=== PATIENT | female | born 1940 | race American Indian/Alaskan Native ===

== ENCOUNTER 2017-03-22 16:56 | Inpatient (IN) | payer OTHER ==
[2017-03-22 17:29] VITALS: BMI 27.6
[2017-03-22 19:05] LABS: BASO # 0.1 K/uL (0.0-0.2); BASO % 1.2 % (0.0-2.0); HEMOGLOBIN 9.5 g/dL (11.0-16.0); LYMPH # 0.8 K/uL (1.0-4.3); LYMPH % 19.3 % (20.0-40.0); MEAN CELL VOLUME 73.2 fL (81.0-99.0); MEAN CORPUSCULAR HEMOGLOBIN 23.8 pg (27.0-31.0); MEAN CORPUSCULAR HGB CONC 32.5 g/dL (33.0-37.0); MONO # 0.4 K/uL (0.0-0.8); MONO % 9.4 % (0.0-10.0); NEUT % 69.1 % (50.0-75.0); RBC 3.98 Mil/uL (3.80-5.20); RED CELL DISTRIBUTION WIDTH 18.7 % (11.5-14.5); WHITE BLOOD COUNT 4.3 K/uL (4.8-10.8)
[2017-03-22 19:11] LABS: SQUAMOUS EPITHIAL 15 /hpf (0-5); URINE BACTERIA FEW (<OCC); URINE BILIRUBIN NEGATIVE (NEGATIVE); URINE BLOOD NEGATIVE (NEGATIVE); URINE CLARITY Hazy (Clear); URINE GLUCOSE (UA) NORMAL (Normal); URINE LEUKOCYTE ESTERASE NEG Leu/uL (Negative); URINE NITRATE NEGATIVE (NEGATIVE); URINE PROTEIN 1+ mg/dL (NEGATIVE)
[2017-03-22 19:12] LABS: URINE COLOR YELLOW (YELLOW)
[2017-03-22 19:13] LABS: ALBUMIN 2.7 g/dL (3.5-5.0)
[2017-03-22 19:14] LABS: INR 1.6; PROTHROMBIN TIME 18.3 SECONDS (9.7-12.2)
[2017-03-22 19:16] LABS: ALB/GLOB RATIO 0.7 (1.0-2.1); AST/SGOT 25 U/L (14-36); BLOOD UREA NITROGEN 9 mg/dL (7-17); GFR AFRICAN-AMERICAN > 60; GFR NON-AFRICAN AMERICAN > 60
[2017-03-22 19:17] LABS: ALT/SGPT 27 U/L (9-52); CALCIUM 8.2 mg/dl (8.6-10.4); LIPASE 65 U/L (23-300)
[2017-03-22] MEDS ORDERED: Potassium Chloride 10 mEq ER Tab PO STA (19:41)
[2017-03-22] MEDS ORDERED: Potassium Chloride 20 mEq ER Tab PO ONE (19:47)
--- NOTE | 2017-03-22 20:07 | C.PDOC ---
History Of Present Illness Elif Ordoñez, a 77 year old female, is brought into the emergency department by her family because of a referral from Dr. Richardson for evaluation at [facility]. The patient brings discharge paperwork from 2 admissions from [facility] within the last month. She was diagnosed with hepatitis B with abdominal ascites and questionable gynecological pathology. Time Seen by Provider: 03/22/17 18:15 Chief Complaint (Nursing): Abdominal Pain History Per: Patient History/Exam Limitations: no limitations Past Medical History Reviewed: Historical Data, Nursing Documentation, Vital Signs Vital Signs: Last Vital Signs Temp 98.3 F 03/22/17 22:04 Pulse 92 H 03/22/17 22:53 Resp 20 03/22/17 22:04 BP 158/82 H 03/22/17 22:04 Pulse Ox 95 03/22/17 22:04 - Medical History PMH: HTN, Hypercholesterolemia, Rheumatoid Arthritis Family History: States: Unknown Family Hx - Social History Hx Alcohol Use: No Hx Substance Use: No - Immunization History Hx Tetanus Toxoid Vaccination: Yes Hx Influenza Vaccination: No Hx Pneumococcal Vaccination: No Review Of Systems Except As Marked, All Systems Reviewed And Found Negative. (Denies any medical problems.) Physical Exam - Physical Exam Appears: Well, Non-toxic, No Acute Distress Skin: Normal Color, Warm Head: Atraumatic, Normacephalic Eye(s): bilateral: Normal Inspection, PERRL, EOMI Ear(s): Left: Normal Nose: Normal Oral Mucosa: Moist Tongue: Normal Appearing Lips: Normal Appearing Teeth: Normal Dentition Gingiva: Normal Appearing Throat: Normal Neck: Normal Chest: No Deformity, No Tenderness Cardiovascular: Rhythm Regular Respiratory: Normal Breath Sounds, No Wheezing Gastrointestinal/Abdominal: Normal Exam, Bowel Sounds, Soft, Tenderness (no tenderness to abdomen), Ascites (Mild ascites) Back: Normal Inspection, No CVA Tenderness Extremity: Normal ROM, No Tenderness, No Pedal Edema, No Deformity, No Swelling Neurological/Psych: Oriented x3, Normal Speech, Normal Cognition ED Course And Treatment - Laboratory Results Result Diagrams: 03/22/17 18:59 03/22/17 18:59 Lab Interpretation: Abnormal (+ hypokalemia) ECG: Interpreted By Nm ECG Rhythm: Sinus Rhythm ECG Interpretation: Normal Rate From EC O2 Sat by Pulse Oximetry: 97 (RA) Pulse Ox Interpretation: Normal - Radiology CXR: Interpreted by Me CXR Interpretation: Yes: No Acute Disease - Other Rad abd x 2 X-Ray: Interpreted by Me (+ increased gas/stool no obst/FA) abd US X-Ray: Read By Radiologist (+ abd ascites) - CT Scan/US Abdominal US Other Rad Studies (CT/US): Read By Radiologist, Radiology Report Reviewed CT/US Interpretation: IMPRESSION: Moderate abdominal free fluid/ascites. Otherwise, no evidence of significant acute process. Gallbladder sludge. No findings to suggest acute cholecystitis. Liver findings suggestive of cirrhosis. Reevaluation Time: 20:10 Reassessment Condition: Improved - Physician Consult Information Outcome Of Conversation: d/w Dr. Chacne Richardson, PMD. UNAWARE of findings from prior evals @ [facility]. did NOT refer this pt to our hospital today. Asks pt to be adm to Hospitalists and f/u with her @ d/c. Prior eval and and consults from [facility]: Mojganda: heme Onc for Hep B. 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
--- NOTE | 2017-03-22 20:49 | US ---
EXAM: US Abdomen Complete CLINICAL HISTORY: 77 years old, female; Signs and symptoms; Other: Hepatitis b, cirrhosis TECHNIQUE: Real-time ultrasound of the abdomen (complete) with image documentation. EXAM DATE/TIME: 03/22/2017 6:33 PM COMPARISON: No relevant prior studies available. FINDINGS: Gallbladder: Contains hypoechoic material, most likely representing sludge. No evidence of significant associated flow/vascularity on color imaging. No large shadowing gallstones seen. Fluid seen adjacent to the gallbladder, felt to be related to the generalized abdominal free fluid. No significant gallbladder wall thickening noted. Common bile duct: Does not appear abnormally dilated, measuring less than 6 mm in diameter. Liver: Appear small in size, measuring 13 cm in length, and has a mildly nodular contour. Findings are likely related to the known diagnosis of cirrhosis. No focal lesions seen sonographically. Normal flow seen in the main portal vein on color and Doppler imaging. Pancreas: Obscured by gas. Right kidney: Within normal limits in appearance. Measures 10.6 cm in length. No evidence of hydronephrosis. Left kidney: Within normal limits in appearance. Measures 10 cm in length. No evidence of hydronephrosis. Spleen: Within normal limits in appearance. Measures 7.4 cm in length. Aorta: Incompletely seen due to gas. Imaged portions appear unremarkable. IVC: Imaged portions appear unremarkable. Free fluid: Moderate amount of abdominal free fluid is seen, abutting the liver, gallbladder, and spleen. IMPRESSION: Moderate abdominal free fluid/ascites. Otherwise, no evidence of significant acute process. Gallbladder sludge. No findings to suggest acute cholecystitis. Liver findings suggestive of cirrhosis. See above for remaining findings.
[2017-03-23 06:59] LABS: IRON 17 ug/dL (37-170)
[2017-03-23 07:02] LABS: ALB/GLOB RATIO 0.7 (1.0-2.1); ALBUMIN 2.5 g/dL (3.5-5.0); ALT/SGPT 21 U/L (9-52); AST/SGOT 30 U/L (14-36); BLOOD UREA NITROGEN 8 mg/dL (7-17); CALCIUM 7.9 mg/dl (8.6-10.4); GFR AFRICAN-AMERICAN > 60; GFR NON-AFRICAN AMERICAN > 60
[2017-03-23 07:10] LABS: % IRON SATURATION 10 (20-55); TOTAL IRON BINDING CAPACITY 178 ug/dL (250-450)
[2017-03-23 08:06] LABS: FOLATE 10.8 ng/mL
--- NOTE | 2017-03-23 08:25 | CP.PCM.HP ---
History of Present Illness - History of Present Illness History of Present Illness: Elif Ordoñez is a 77F w/ hx of Hep B, decompensated liver cirrhosis, RA who presented to the ED due to advise from PCP for abd pain. Pt states that she has been having abd pain for a few weeks to months. Since onset, her abd pain has been constant. She currently rates it a 8 out of 10. Location lower abd with no radiation. She desscribes it has "feel tight." Denies any aggravating factors. She notes that the pain improved after her paracentesis in February, but states that her abd pain came back over time along with her increase in abd girth. She denies any fever, chills or diaphoresis. Pt had discharge paperwork bedside from [facility] [place]. She was not quite sure of her current medical hx and course. Pt has had a diag of Hep B for 4 years and states thats she follows with Dr. Ramos. She denies previous tx of Hep B or any meds for her hepatitis. She was recently hospitalized in February at [facility] [place] x 2. In her first admission on February 27, pt had an abd paracentesis. According to the pt, they took 6 bodies of fluid. Pt states that she has also had complaints of NUT SIFTER pain and has an appt w / her NUT SIFTER as an oupt. As per pt, she was never started on any diuretics PMH: HTN, Hypercholesterolemia, Rheumatoid Arthritis, Hep B, decompensated liver cirrohsis Surgical hx: Denies Family History: Denies any hx of colon ca or other malignancies, but was unsure Social hx: Denies smoking, EtoH use and illicit drug use ROS: 12 point ROS was conducted, other than what was states above it was neg Endoscopy hx: Pt states that she had a colonoscopy and EGD as an oupt within 4 hrs and states that they were both neg Present on Admission - Present on Admission Any Indicators Present on Admission: Yes Review of Systems - Review of Systems Systems not reviewed;Unavailable: Acuity of Condition - Constitutional Constitutional: Fatigue, Lethargy, Weight Loss - Cardiovascular Cardiovascular: absent: As Per HPI, Acrocyanosis, Chest Pain, Chest Pain at Rest , Chest Pain with Activity, Claudication, Diaphoresis, Dyspnea, Dyspnea on Exertion, Edema, Irregular Heart Rhythm, Pain Radiating to Arm/Neck/Jaw, Leg Edema, Leg Ulcers, Lightheadedness, Orthopnea, Palpitations, Paroxysmal Nocturnal Dyspnea, Pedal Edema, Radiating Pain, Rapid Heart Rate, Slow Heart Rate, Syncope, Other - Respiratory Respiratory: absent: As Per HPI, Cough, Dyspnea, Hemoptysis, Dyspnea on Exertion , Wheezing, Snoring, Stridor, Pain on Inspiration, Chest Congestion, Excessive Mucous Production, Change in Mucous Color, Pain with Coughing, Other - Gastrointestinal Gastrointestinal: Abdominal Pain - Integumentary Integumentary: absent: As Per HPI, Acne, Alopecia, Bleeding Lesions, Change in Hair, Change in Nails, Change in Pigmentation, Changing Lesions, Dry Skin, Erythema, Furuncle, Hirsutism, Lesions, New Lesions, Non-Healing Lesions, Photosensitivity, Pruritus, Rash, Skin Pain, Skin Ulcer, Sores, Striae, Swelling , Unusual Bruising, Wounds, Jaundice, Other - Neurological Neurological: Dizziness - Psychiatric Psychiatric: absent: As Per HPI, Abnormal Sleep Pattern, Anhedonia, Anxiety, Auditory Hallucinations, Behavioral Changes, Change in Appetite, Change in Libido, Confusion, Depression, Difficulty Concentrating, Hallucinations, Homicidal Ideation, Hopelessness, Irritability, Memory Loss, Mood Swings, Panic Attacks, Paranoia, Suicidal Ideation, Visual Hallucinations, Tactile Hallucinations, Other Past Patient History - Past Medical History & Family History Past Medical History?: Yes - Past Social History Smoking Status: Former Smoker - CARDIAC Hx Hypercholesterolemia: Yes Hx Hypertension: Yes - HEMATOLOGICAL/ONCOLOGICAL Hx Blood Disorders: Yes Hx Hepatitis B: Yes Other/Comment: ascites - MUSCULOSKELETAL/RHEUMATOLOGICAL Hx Falls: No - GASTROINTESTINAL Hx Gastroesophageal Reflux: Yes - PSYCHIATRIC Hx Substance Use: No - SURGICAL HISTORY Other/Comment: Cancer Spot in 1960 Taken Out And Cleared. - ANESTHESIA Hx Anesthesia: Yes Hx Anesthesia Reactions: No Hx Malignant Hyperthermia: No Has any member of the family had a problem w/ anesthesia?: No Meds Allergies/Adverse Reactions: Allergies Allergy/AdvReac Type Severity Reaction Status Date / Time No Known Allergies Allergy Verified 03/22/17 17:15 Physical Exam - Constitutional Appears: No Acute Distress - Head Exam Head Exam: ATRAUMATIC, NORMAL INSPECTION, NORMOCEPHALIC - Eye Exam Eye Exam: EOMI, Normal appearance, PERRL Pupil Exam: NORMAL ACCOMODATION, PERRL - Respiratory Exam Respiratory Exam: Decreased Breath Sounds - Cardiovascular Exam Cardiovascular Exam: REGULAR RHYTHM - GI/Abdominal Exam GI & Abdominal Exam: Distended, Normal Bowel Sounds, Organomegaly, Soft. absent : Tenderness Results - Vital Signs Recent Vital Signs: Last Vital Signs Temp 98.4 F 03/23/17 07:25 Pulse 90 03/23/17 07:25 Resp 18 03/23/17 07:25 BP 146/79 03/23/17 07:25 Pulse Ox 97 03/23/17 07:25 - Labs Result Diagrams: 03/22/17 18:59 03/23/17 06:33 Labs: Laboratory Results - last 24 hr 03/23/17 03/23/17 06:33 06:33 Sodium 141 Potassium 3.6 Chloride 99 Carbon Dioxide 31 H Anion Gap 15 BUN 8 Creatinine 0.5 L Est GFR ( Amer) > 60 Est GFR (Non-Af Amer) > 60 Random Glucose 85 Calcium 7.9 L Iron 17 L TIBC 178 L % Saturation 10 L Total Bilirubin 0.4 AST 30 ALT 21 Alkaline Phosphatase 79 Total Protein 6.2 L Albumin 2.5 L Globulin 3.7 Albumin/Globulin Ratio 0.7 L Vitamin B12 819 Folate 10.8 TSH 3rd Generation 2.65 Assessment & Plan (1) Abdominal pain Status: Acute (2) Ascites Status: Acute (3) Hypokalemia Status: Acute
[2017-03-23 08:28] LABS: HEPATITIS A IGM NEGATIVE (NEGATIVE); HEPATITIS B CORE AB NEGATIVE (NEGATIVE)
[2017-03-23 08:40] LABS: HEPATITIS C ANTIBODY NEGATIVE (NEGATIVE)
[2017-03-23 08:46] LABS: HEPATITIS B SURFACE AG POSITIVE (NEGATIVE)
--- NOTE | 2017-03-23 09:21 | CP.PCM.CON ---
<Hilton Ramos - Last Filed: 03/23/17 09:34> History of Present Illness - History of Present Illness History of Present Illness: Elif Ordoñez is a 77F w/ hx of Hep B, decompensated liver cirrhosis, RA who presented to the ED due to advise from PCP for abd pain. Pt states that she has been having abd pain for a few weeks to months. Since onset, her abd pain has been constant. She currently rates it a 8 out of 10. Location lower abd with no radiation. She desscribes it has "feel tight." Denies any aggravating factors. She notes that the pain improved after her paracentesis in February, but states that her abd pain came back over time along with her increase in abd girth. She denies any fever, chills or diaphoresis. Pt had discharge paperwork bedside from [facility]. She was not quite sure of her current medical hx and course. Pt has had a diag of Hep B for 4 years and states thats she follows with Dr. Ramos. She denies previous tx of Hep B or any meds for her hepatitis. She was recently hospitalized in February at [facility] x 2. In her first admission on February 27, pt had an abd paracentesis. According to the pt, they took 6 bodies of fluid. 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 As per pt, she was never started on any diuretics PMH: HTN, Hypercholesterolemia, Rheumatoid Arthritis, Hep B, decompensated liver cirrohsis Surgical hx: Denies Family History: Denies any hx of colon ca or other malignancies, but was unsure Social hx: Denies smoking, EtoH use and illicit drug use ROS: 12 point ROS was conducted, other than what was states above it was neg Endoscopy hx: Pt states that she had a colonoscopy and EGD as an oupt within 4 hrs and states that they were both neg Past Patient History - Past Medical History & Family History Past Medical History?: Yes - Past Social History Smoking Status: Former Smoker - CARDIAC Hx Hypercholesterolemia: Yes Hx Hypertension: Yes - HEMATOLOGICAL/ONCOLOGICAL Hx Blood Disorders: Yes Hx Hepatitis B: Yes Other/Comment: ascites - MUSCULOSKELETAL/RHEUMATOLOGICAL Hx Falls: No - GASTROINTESTINAL Hx Gastroesophageal Reflux: Yes - PSYCHIATRIC Hx Substance Use: No - SURGICAL HISTORY Other/Comment: Cancer Spot in 1959 Taken Out And Cleared. - ANESTHESIA Hx Anesthesia: Yes Hx Anesthesia Reactions: No Hx Malignant Hyperthermia: No Has any member of the family had a problem w/ anesthesia?: No Meds Allergies/Adverse Reactions: Allergies Allergy/AdvReac Type Severity Reaction Status Date / Time No Known Allergies Allergy Verified 03/22/17 17:15 - Medications Medications: Current Medications Aspirin (Aspirin Chewable) 81 mg PO DAILY [facility] Enoxaparin Sodium (Lovenox) 40 mg SC DAILY [facility] Metoprolol Tartrate (Lopressor) 25 mg PO BID [facility] Last Admin: 03/23/17 00:10 Dose: 25 mg Pneumococcal Polyvalent Vaccine (Pneumovax 23 Vaccine) 0.5 ml IM .ONCE ONE Stop: 03/25/17 11:01 Rosuvastatin Calcium (Crestor) 5 mg PO HS [facility] Physical Exam - Constitutional Appears: Well, Non-toxic, No Acute Distress - Eye Exam Eye Exam: Normal appearance - ENT Exam ENT Exam: Mucous Membranes Moist, Normal Exam - Respiratory Exam Respiratory Exam: Clear to Auscultation Bilateral, NORMAL BREATHING PATTERN. absent: Prolonged Expiratory Phase, Rales, Rhonchi, Wheezes - Cardiovascular Exam Cardiovascular Exam: REGULAR RHYTHM, +S1, +S2 - GI/Abdominal Exam GI & Abdominal Exam: Distended, Normal Bowel Sounds, Organomegaly. absent: Guarding, Rebound, Rigid Additional comments: distended abd with + fluid wave - Extremities Exam Extremities exam: Positive for: normal inspection - Neurological Exam Neurological exam: Alert, Oriented x3 - Psychiatric Exam Psychiatric exam: Flat Affect, Normal Mood - Skin Skin Exam: Dry, Intact, Normal Color, Warm Results - Vital Signs Recent Vital Signs: Last Vital Signs Temp 98.4 F 03/23/17 07:25 Pulse 90 03/23/17 07:25 Resp 18 03/23/17 07:25 BP 146/79 03/23/17 07:25 Pulse Ox 97 03/23/17 07:25 - Labs Result Diagrams: 03/22/17 18:59 03/23/17 06:33 Labs: Laboratory Results - last 24 hr 03/23/17 03/23/17 03/23/17 06:33 06:33 07:55 Sodium 141 Potassium 3.6 Chloride 99 Carbon Dioxide 31 H Anion Gap 15 BUN 8 Creatinine 0.5 L Est GFR ( Amer) > 60 Est GFR (Non-Af Amer) > 60 Random Glucose 85 Calcium 7.9 L Iron 17 L TIBC 178 L % Saturation 10 L Total Bilirubin 0.4 AST 30 ALT 21 Alkaline Phosphatase 79 Total Protein 6.2 L Albumin 2.5 L Globulin 3.7 Albumin/Globulin Ratio 0.7 L Vitamin B12 819 Folate 10.8 TSH 3rd Generation 2.65 Hepatitis A IgM Ab Negative Hep Bs Antigen Positive H Hep Bs Antibody Hep B Core IgM Ab Negative Hepatitis C Antibody Negative 03/23/17 07:55 Sodium Potassium Chloride Carbon Dioxide Anion Gap BUN Creatinine Est GFR ( Amer) Est GFR (Non-Af Amer) Random Glucose Calcium Iron TIBC % Saturation Total Bilirubin AST ALT Alkaline Phosphatase Total Protein Albumin Globulin Albumin/Globulin Ratio Vitamin B12 Folate TSH 3rd Generation Hepatitis A IgM Ab Hep Bs Antigen Hep Bs Antibody Negative Hep B Core IgM Ab Hepatitis C Antibody Assessment & Plan - Assessment and Plan (Free Text) Assessment: Elif Ordoñez is 77F w/ hx of hep b, decompensated liver cirrohsis who presented to the Ed with complaints of abd pain. Her abd pain is likely 2/2 worsening ascites. DDx: SBP vs BILLBOARD POSTER HELPER pain Abd pain likely 2/2 tense ascites Ascites likely 2/2 decompensated liver cirrhosis Decompensated liver cirrhosis likely 2/2 Hep B BILLBOARD POSTER HELPER Pain Plan: Diagnostic and therapeutic abd paracentesis Send abd fluid for cell count, smear, albumin, total protein Will send for Hep panel and other hep b serologies will hold on lasix for now, until after paracentesis Depending on total amount of fluid extracted with give albumin if indicated will hold on abx for now, as pt is not febrile and does not clinically present with SBP will try to obtain records from pt's primary GI Pain management as per primary team MELD: 12 Ultrasound report notes, no biliary pathology, liver shows cirrohsis characteristics; AFP WNL noted from [facility] paper work D/W Dr. Segal <Willis Segal - Last Filed: 03/23/17 14:21> Meds - Medications Medications: Current Medications Aspirin (Aspirin Chewable) 81 mg PO DAILY [facility] Last Admin: 03/23/17 10:00 Dose: Not Given Enoxaparin Sodium (Lovenox) 40 mg SC DAILY [facility] Last Admin: 03/23/17 10:00 Dose: Not Given Metoprolol Tartrate (Lopressor) 25 mg PO BID [facility] Last Admin: 03/23/17 09:12 Dose: 25 mg Pneumococcal Polyvalent Vaccine (Pneumovax 23 Vaccine) 0.5 ml IM .ONCE ONE Stop: 03/25/17 11:01 Rosuvastatin Calcium (Crestor) 5 mg PO HS [facility] Results - Vital Signs Recent Vital Signs: Last Vital Signs Temp 98.4 F 03/23/17 07:25 Pulse 86 03/23/17 12:19 Resp 18 03/23/17 07:25 BP 157/68 H 03/23/17 09:12 Pulse Ox 97 03/23/17 07:25 - Labs Result Diagrams: 03/22/17 18:59 03/23/17 06:33 Labs: Laboratory Results - last 24 hr 03/23/17 03/23/17 03/23/17 06:33 06:33 07:55 Sodium 141 Potassium 3.6 Chloride 99 Carbon Dioxide 31 H Anion Gap 15 BUN 8 Creatinine 0.5 L Est GFR ( Amer) > 60 Est GFR (Non-Af Amer) > 60 Random Glucose 85 Calcium 7.9 L Iron 17 L TIBC 178 L % Saturation 10 L Total Bilirubin 0.4 AST 30 ALT 21 Alkaline Phosphatase 79 Total Protein 6.2 L Albumin 2.5 L Globulin 3.7 Albumin/Globulin Ratio 0.7 L Vitamin B12 819 Folate 10.8 TSH 3rd Generation 2.65 Fluid Source Fluid Appearance Fluid WBC Fluid RBC Fluid Tot Cell Count Fluid Neutrophils Fluid Lymphocytes Fld Monocyte/Macrophag Fluid Comment Hepatitis A IgM Ab Negative Hep Bs Antigen Positive H Hep Bs Ag Neutralizatn Hep Bs Antibody Hep B Core IgM Ab Negative Hepatitis C Antibody Negative 03/23/17 03/23/17 03/23/17 07:55 07:55 13:23 Sodium Potassium Chloride Carbon Dioxide Anion Gap BUN Creatinine Est GFR ( Amer) Est GFR (Non-Af Amer) Random Glucose Calcium Iron TIBC % Saturation Total Bilirubin AST ALT Alkaline Phosphatase Total Protein Albumin Globulin Albumin/Globulin Ratio Vitamin B12 Folate TSH 3rd Generation Fluid Source Peritoneal Fluid Appearance Sl cloudy Fluid WBC 441.0 H Fluid RBC 2524.0 H Fluid Tot Cell Count 100 H Fluid Neutrophils 85.0 H Fluid Lymphocytes 12.0 H Fld Monocyte/Macrophag 3 H Fluid Comment Hepatitis A IgM Ab Hep Bs Antigen Hep Bs Ag Neutralizatn Confirmed positive H Hep Bs Antibody Negative Hep B Core IgM Ab Hepatitis C Antibody Attending/Attestation - Attestation I have personally seen and examined this patient.: Yes I have fully participated in the care of the patient.: Yes I have reviewed all pertinent clinical information: Yes Notes (Text): 03/23/17 14:19 77 year old female with h/o hep b cirrhosis admitted with abdominal pain and distention. 1. Hepatitis B Cirrhosis 2. Ascites Plan: -recommend dx/tx paracentesis -fluid analysis as above -low sodium diet -start diuretics on discharge
[2017-03-23] MEDS: Enoxaparin 40 mg Syringe SC SCH (10:00)
--- NOTE | 2017-03-23 10:56 | RAD ---
PROCEDURE: Radiographs of the chest and abdomen (obstructive series) HISTORY: Abdominal pain COMPARISON: None TECHNIQUE: AP radiograph of the chest, with upright and supine radiographs of the abdomen. FINDINGS: CHEST: Lungs: There is linear subsegmental atelectasis in both lower lobes. Cardiovascular: Normal size heart. No pulmonary vascular congestion. Pleura: No pleural fluid. No pneumothorax. Other findings: None. ABDOMEN AND PELVIS: Bowel: The bowel gas pattern is nonobstructive. No evidence of mechanical obstruction. There is probable retained contrast material in sigmoid colon diverticula. Free air: None. Bones: There is moderate dextroscoliosis in the lumbar spine. Other findings: None. IMPRESSION: Nonobstructive bowel-gas pattern. Multifocal subsegmental atelectasis in the lower lobes.
--- NOTE | 2017-03-23 12:25 | CARD ---
APPROVED REPORT EKG Measurement Heart [id number] <Conclusion> Possible arm lead reversal suggest repeat. Normal sinus rhythm Right axis deviation ST & T wave abnormality, consider inferior ischemia Abnormal ECG
--- NOTE | 2017-03-23 13:08 | PCM.SURG1 ---
Surgeon's Initial Post Op Note - Surgeon's Notes Surgeon: Manoj Bilingual Instructor: None Pre-Operative Diagnosis: Ascites. Operative Findings: Ascites. Post-Operative Diagnosis: Ascites. Operation Performed: Paracentesis. Specimen/Specimens Removed: 3.5L of clear pale yellow fluid aspirated. Estimated Blood Loss: EBL {In ML}: 1 Date of Surgery/Procedure: 03/23/17 Time of Surgery/Procedure: 12:20
[2017-03-23 13:24] LABS: BODY FLUID TYPE PERITONEAL
[2017-03-23 14:07] LABS: BF GROSS APPEARANCE SL CLOUDY (CLEAR)
[2017-03-23 14:08] LABS: BODY FLUID MONO/MACROPHAGE 3 % (0-0); BODY FLUID TOTAL COUNT 100 (0-0)
--- NOTE | 2017-03-23 15:32 | CP.PCM.CON ---
History of Present Illness - History of Present Illness History of Present Illness: 77 y/o female with Hx/o Rheumatoid arthritis, Hep B followed @ Infectious dis clinic in [place], & was also followed by GI, recently had colonoscopy. Ct scan of abdome was done prior to colonoscopy which showed extensive ascitis, nodular appearance of omentum & abnormal appearance of uterus. Pt is admitted for c/o abdominal pain. Pt was hospitalized @ [facility] last month when paracenthesis was done & referred for [employer] eval as out patient. Results of paracenthesis are not available to us yet. One wk ago she was adm @ [facility] for a syncopal episode Pt has been treated with Xeljanx & Entecavir. 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 - ANESTHESIA Hx Anesthesia: Yes Hx Anesthesia Reactions: No Hx Malignant Hyperthermia: No Has any member of the family had a problem w/ anesthesia?: No Meds Allergies/Adverse Reactions: Allergies Allergy/AdvReac Type Severity Reaction Status Date / Time No Known Allergies Allergy Verified 03/22/17 17:15 - Medications Medications: Current Medications Aspirin (Aspirin Chewable) 81 mg PO DAILY [facility] Last Admin: 03/23/17 10:00 Dose: Not Given Enoxaparin Sodium (Lovenox) 40 mg SC DAILY [facility] Last Admin: 03/23/17 10:00 Dose: Not Given Metoprolol Tartrate (Lopressor) 25 mg PO BID [facility] Last Admin: 03/23/17 09:12 Dose: 25 mg Pneumococcal Polyvalent Vaccine (Pneumovax 23 Vaccine) 0.5 ml IM .ONCE ONE Stop: 03/25/17 11:01 Rosuvastatin Calcium (Crestor) 5 mg PO [facility] Physical Exam - Constitutional Appears: No Acute Distress - Head Exam Head Exam: ATRAUMATIC, NORMOCEPHALIC - Eye Exam Additional comments: No scleral icterus - ENT Exam ENT Exam: Mucous Membranes Dry - Neck Exam Additional comments: Neck supple - Respiratory Exam Additional comments: Lungs clear - Cardiovascular Exam Cardiovascular Exam: REGULAR RHYTHM - GI/Abdominal Exam GI & Abdominal Exam: Soft Additional comments: ascitis No tenderness - Extremities Exam Additional comments: No edema Arthritic changes in finer joints of both hands Results - Vital Signs Recent Vital Signs: Last Vital Signs Temp 98.4 F 03/23/17 07:25 Pulse 86 03/23/17 12:19 Resp 18 03/23/17 07:25 BP 157/68 H 03/23/17 09:12 Pulse Ox 97 03/23/17 07:25 - Labs Result Diagrams: 03/22/17 18:59 03/23/17 06:33 Labs: Laboratory Results - last 24 hr 03/23/17 03/23/17 03/23/17 06:33 06:33 07:55 Sodium 141 Potassium 3.6 Chloride 99 Carbon Dioxide 31 H Anion Gap 15 BUN 8 Creatinine 0.5 L Est GFR ( Amer) > 60 Est GFR (Non-Af Amer) > 60 Random Glucose 85 Calcium 7.9 L Iron 17 L TIBC 178 L % Saturation 10 L Total Bilirubin 0.4 AST 30 ALT 21 Alkaline Phosphatase 79 Total Protein 6.2 L Albumin 2.5 L Globulin 3.7 Albumin/Globulin Ratio 0.7 L Vitamin B12 819 Folate 10.8 TSH 3rd Generation 2.65 Fluid Source Fluid Appearance Fluid WBC Fluid RBC Fluid Tot Cell Count Fluid Neutrophils Fluid Lymphocytes Fld Monocyte/Macrophag Fluid Comment Hepatitis A IgM Ab Negative Hep Bs Antigen Positive H Hep Bs Ag Neutralizatn Hep Bs Antibody Hep B Core IgM Ab Negative Hepatitis C Antibody Negative 03/23/17 03/23/17 03/23/17 07:55 07:55 13:23 Sodium Potassium Chloride Carbon Dioxide Anion Gap BUN Creatinine Est GFR ( Amer) Est GFR (Non-Af Amer) Random Glucose Calcium Iron TIBC % Saturation Total Bilirubin AST ALT Alkaline Phosphatase Total Protein Albumin Globulin Albumin/Globulin Ratio Vitamin B12 Folate TSH 3rd Generation Fluid Source Peritoneal Fluid Appearance Sl cloudy Fluid WBC 441.0 H Fluid RBC 2524.0 H Fluid Tot Cell Count 100 H Fluid Neutrophils 85.0 H Fluid Lymphocytes 12.0 H Fld Monocyte/Macrophag 3 H Fluid Comment Hepatitis A IgM Ab Hep Bs Antigen Hep Bs Ag Neutralizatn Confirmed positive H Hep Bs Antibody Negative Hep B Core IgM Ab Hepatitis C Antibody Assessment & Plan - Assessment and Plan (Free Text) Assessment: Extensive ascitis 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
[2017-03-23] MEDS ORDERED: Morphine 4 MG/ML VIAL IVP PRN (15:39)
--- NOTE | 2017-03-23 22:47 | CP.PCM.PN ---
Subjective - Date & Time of Evaluation Date of Evaluation: 03/23/17 - Subjective Subjective: ADMITTED WITH ABDOMINAL PAIN, WEAKNESS, AND SHE HAD PARACENTESIS OF 3 L, NOW SHE FEELS BETTER, NO SOB Objective - Vital Signs/Intake and Output Vital Signs (last 24 hours): Temp Pulse Resp BP Pulse Ox 98.2 F 82 20 140/69 97 03/23/17 16:18 03/23/17 16:18 03/23/17 16:18 03/23/17 17:58 03/23/17 16:18 Intake and Output: 03/23/17 03/24/17 18:59 06:59 Intake Total 500 Balance 500 - Medications Medications: Current Medications Aspirin (Aspirin Chewable) 81 mg PO DAILY [facility] Last Admin: 03/23/17 10:00 Dose: Not Given Enoxaparin Sodium (Lovenox) 40 mg SC DAILY [facility] Last Admin: 03/23/17 10:00 Dose: Not Given Metoprolol Tartrate (Lopressor) 25 mg PO BID [facility] Last Admin: 03/23/17 17:58 Dose: 25 mg Morphine Sulfate (Morphine) 2 mg IVP Q6 PRN PRN Reason: Pain, moderate (4-7) Pneumococcal Polyvalent Vaccine (Pneumovax 23 Vaccine) 0.5 ml IM .ONCE ONE Stop: 03/25/17 11:01 Rosuvastatin Calcium (Crestor) 5 mg PO HS [facility] Last Admin: 03/23/17 22:36 Dose: 5 mg - Labs Labs: 03/23/17 06:33 PT 18.3 SECONDS (9.7-12.2) H 03/22/17 18:59 INR 1.6 03/22/17 18:59 APTT 27 SECONDS (21-34) 03/22/17 18:59 - Constitutional Appears: Non-toxic, No Acute Distress, Chronically Ill - Head Exam Head Exam: ATRAUMATIC, NORMAL INSPECTION, NORMOCEPHALIC - Eye Exam Eye Exam: EOMI, Normal appearance, PERRL Pupil Exam: NORMAL ACCOMODATION - ENT Exam ENT Exam: Mucous Membranes Moist, Normal Exam, Normal Oropharynx, TM's Normal Bilaterally - Respiratory Exam Respiratory Exam: Clear to Ausculation Bilateral, NORMAL BREATHING PATTERN - Cardiovascular Exam Cardiovascular Exam: REGULAR RHYTHM, +S1 - GI/Abdominal Exam GI & Abdominal Exam: Distended (POSITIVE ASCITIES), Normal Bowel Sounds - Rectal Exam Rectal Exam: NORMAL INSPECTION - Extremities Exam Extremities Exam: Full ROM, Normal Capillary Refill, Normal Inspection - Neurological Exam Neurological Exam: Alert, Awake, CN II-XII Intact, Normal Gait, Oriented x3 - Psychiatric Exam Psychiatric exam: Normal Mood - Skin Skin Exam: Intact Assessment and Plan (1) Abdominal pain Status: Acute (2) Ascites Assessment & Plan: S/P PARACENTESIS, NOW SHE FEELS BETTER, NO SOB Status: Chronic (3) Hypokalemia Status: Acute
--- NOTE | 2017-03-24 05:55 | CP.PCM.PN ---
<Hilton Ramos - Last Filed: 03/24/17 06:09> Subjective - Date & Time of Evaluation Date of Evaluation: 03/24/17 Time of Evaluation: 05:30 - Subjective Subjective: PGY4 GI Follow-up Note Pt seen and examined bedside Pt still C/o abd pain Loc lower quad b/l states her pain is a 7 out of 10 Small BM, bormed, brown denies any blood denies any fever, chills, or diaphoresis No other complaints ROS: 10 point ROS conducted, other than what was previously stated above ROS is neg Objective - Vital Signs/Intake and Output Vital Signs (last 24 hours): Temp Pulse Resp BP Pulse Ox 98.6 F 75 20 162/74 H 96 03/23/17 23:15 03/24/17 04:04 03/23/17 23:15 03/23/17 23:15 03/23/17 23:15 Intake and Output: 03/23/17 03/24/17 18:59 06:59 Intake Total 500 300 Balance 500 300 - Medications Medications: Current Medications Aspirin (Aspirin Chewable) 81 mg PO DAILY [facility] Last Admin: 03/23/17 10:00 Dose: Not Given Enoxaparin Sodium (Lovenox) 40 mg SC DAILY [facility] Last Admin: 03/23/17 10:00 Dose: Not Given Cefotaxime Sodium 2 gm/ Sodium (Chloride) 100 mls @ 100 mls/hr IV Q8H STA Stop: 03/24/17 06:48 Metoprolol Tartrate (Lopressor) 25 mg PO BID [facility] Last Admin: 03/23/17 17:58 Dose: 25 mg Morphine Sulfate (Morphine) 2 mg IVP Q6 PRN PRN Reason: Pain, moderate (4-7) Pneumococcal Polyvalent Vaccine (Pneumovax 23 Vaccine) 0.5 ml IM .ONCE ONE Stop: 03/25/17 11:01 Rosuvastatin Calcium (Crestor) 5 mg PO [facility] Last Admin: 03/23/17 22:36 Dose: 5 mg - Labs Labs: 03/23/17 06:33 PT 18.3 SECONDS (9.7-12.2) H 03/22/17 18:59 INR 1.6 03/22/17 18:59 APTT 27 SECONDS (21-34) 03/22/17 18:59 - Constitutional Appears: Well, Non-toxic, No Acute Distress - Head Exam Head Exam: ATRAUMATIC, NORMOCEPHALIC - Eye Exam Eye Exam: Normal appearance - ENT Exam ENT Exam: Mucous Membranes Moist, Normal Exam - Respiratory Exam Respiratory Exam: Clear to Ausculation Bilateral, NORMAL BREATHING PATTERN. absent: Rales, Rhonchi, Wheezes - Cardiovascular Exam Cardiovascular Exam: REGULAR RHYTHM, +S1, +S2 - GI/Abdominal Exam GI & Abdominal Exam: Soft, Tenderness (LLQ and RLQ), Normal Bowel Sounds. absent: Firm, Guarding, Rigid, Organomegaly, Rebound - Extremities Exam Extremities Exam: Normal Capillary Refill, Normal Inspection - Neurological Exam Neurological Exam: Alert, Awake, Oriented x3 - Psychiatric Exam Psychiatric exam: Normal Affect, Normal Mood - Skin Skin Exam: Dry, Intact, Normal Color, Warm Assessment and Plan - Assessment and Plan (Free Text) Assessment: Elif Ordoñez is a 77F w/ hx of decompensated liver cirrohisis likely 2/2 Hep B who presented to the Ed w/ abd pain. After paracentesis fluid analysis revealed pt has presumptive diag of SBP. SBP Ascities 2/2 Decompensated liver cirrhosis Decompensated Liver Cirrhosis 2/2 Hep B Hep B Constipation Plan -absolute PMN is ~ 375 , with RBC correction = 365 (>250) -will start cefotax 2g q 8hr IV -will wait for final culture of fluid -will hold on albumin, since Crea <1, BUN <20, and Tb < 4 -waiting on Hep B seriology -Will need to eventually start on lasix and aldactone prior to discharge -Continue supportive care -pain management as per primary team -advance diet as tolerated -will had miralax and senna d/w Dr. Massey <Jj Massey - Last Filed: 03/24/17 09:39> Objective - Vital Signs/Intake and Output Vital Signs (last 24 hours): Temp Pulse Resp BP Pulse Ox 98.3 F 100 H 18 128/58 L 96 03/24/17 08:54 03/24/17 09:19 03/24/17 08:54 03/24/17 09:19 03/24/17 09:19 Intake and Output: 03/24/17 03/24/17 06:59 18:59 Intake Total 520 Balance 520 - Medications Medications: Current Medications Aspirin (Aspirin Chewable) 81 mg PO DAILY [facility] Last Admin: 03/23/17 10:00 Dose: Not Given Enoxaparin Sodium (Lovenox) 40 mg SC DAILY [facility] Last Admin: 03/23/17 10:00 Dose: Not Given Metoprolol Tartrate (Lopressor) 25 mg PO BID [facility] Last Admin: 03/23/17 17:58 Dose: 25 mg Morphine Sulfate (Morphine) 2 mg IVP Q6 PRN PRN Reason: Pain, moderate (4-7) Pneumococcal Polyvalent Vaccine (Pneumovax 23 Vaccine) 0.5 ml IM .ONCE ONE Stop: 03/25/17 11:01 Rosuvastatin Calcium (Crestor) 5 mg PO HS [facility] Last Admin: 03/23/17 22:36 Dose: 5 mg - Labs Labs: 03/24/17 06:18 03/24/17 06:18 PT 18.3 SECONDS (9.7-12.2) H 03/22/17 18:59 INR 1.6 03/22/17 18:59 APTT 27 SECONDS (21-34) 03/22/17 18:59 Attending/Attestation - Attestation I have personally seen and examined this patient.: Yes I have fully participated in the care of the patient.: Yes I have reviewed all pertinent clinical information, including history, physical exam and plan: Yes Notes (Text): 03/24/17 09:34 I have seen and examined patient with GI fellow. No acute events overnight. She complains of mild b/l lower quadrant abdominal pain, though improved compared to previous day. s/p paracentesis yesterday with 3.5 liters fluid removed. She denies fever/chills, nausea, vomiting, diarrhea. Review of vitals from today shows elevated BP. Chronic HBV, decompensated cirrhosis Ascites, s/p paracentesis Ascitic fluid analysis shows +SBP - Low sodium diet as tolerated - Begin antibiotic therapy for treatment of SBP. Patient with normal creatinine /bilirubin, therefore albumin therapy not required. - Await ascitic culture, albumin, protein results - May begin low dose diuretic therapy and continue to monitor electrolytes - Following hospital discharge, patient will follow up with primary GI physician , has appointment on April 04. Will continue to monitor clinical course.
[2017-03-24 06:44] LABS: BASO % 0.9 % (0.0-2.0); EOS # 0.1 K/uL (0.0-0.7); EOS % 2.6 % (0.0-4.0); HEMOGLOBIN 8.9 g/dL (11.0-16.0); LYMPH # 0.7 K/uL (1.0-4.3); LYMPH % 18.5 % (20.0-40.0); MEAN CELL VOLUME 73.6 fL (81.0-99.0); MEAN CORPUSCULAR HEMOGLOBIN 23.6 pg (27.0-31.0); MEAN PLATELET VOLUME 8.2 fL (7.2-11.7); MONO # 0.4 K/uL (0.0-0.8); MONO % 10.2 % (0.0-10.0); NEUT # 2.6 K/uL (1.8-7.0); NEUT % 67.8 % (50.0-75.0); RBC 3.78 Mil/uL (3.80-5.20); RED CELL DISTRIBUTION WIDTH 18.9 % (11.5-14.5); WHITE BLOOD COUNT 3.9 K/uL (4.8-10.8)
[2017-03-24 06:58] LABS: BLOOD UREA NITROGEN 3 mg/dL (7-17); CALCIUM 7.7 mg/dl (8.6-10.4); GFR AFRICAN-AMERICAN > 60; GFR NON-AFRICAN AMERICAN > 60
[2017-03-24] MEDS: Enoxaparin 40 mg Syringe SC SCH (10:42)
--- NOTE | 2017-03-24 11:13 | CP.PCM.PN ---
Subjective - Date & Time of Evaluation Date of Evaluation: 03/24/17 Time of Evaluation: 11:10 - Subjective Subjective: Feels better Less abdominal pain Objective - Vital Signs/Intake and Output Vital Signs (last 24 hours): Temp Pulse Resp BP Pulse Ox 98.3 F 79 18 126/69 96 03/24/17 08:54 03/24/17 10:40 03/24/17 08:54 03/24/17 10:42 03/24/17 09:19 Intake and Output: 03/24/17 03/24/17 06:59 18:59 Intake Total 520 Balance 520 - Medications Medications: Current Medications Aspirin (Aspirin Chewable) 81 mg PO DAILY [facility] Last Admin: 03/24/17 10:41 Dose: 81 mg Enoxaparin Sodium (Lovenox) 40 mg SC DAILY [facility] Last Admin: 03/24/17 10:42 Dose: 40 mg Furosemide (Lasix) 40 mg PO DAILY [facility] Last Admin: 03/24/17 10:42 Dose: 40 mg Ceftriaxone Sodium 2 gm/ (Sodium Chloride) 100 mls @ 100 mls/hr IVPB DAILY@ 1500 [facility] Metoprolol Tartrate (Lopressor) 25 mg PO BID [facility] Last Admin: 03/24/17 09:20 Dose: 25 mg Morphine Sulfate (Morphine) 2 mg IVP Q6 PRN PRN Reason: Pain, moderate (4-7) Pneumococcal Polyvalent Vaccine (Pneumovax 23 Vaccine) 0.5 ml IM .ONCE ONE Stop: 03/25/17 11:01 Rosuvastatin Calcium (Crestor) 5 mg PO HS [facility] Last Admin: 03/23/17 22:36 Dose: 5 mg Spironolactone (Aldactone) 100 mg PO DAILY [facility] Last Admin: 03/24/17 10:42 Dose: 100 mg - Labs Labs: 03/24/17 06:18 03/24/17 06:18 PT 18.3 SECONDS (9.7-12.2) H 03/22/17 18:59 INR 1.6 03/22/17 18:59 APTT 27 SECONDS (21-34) 03/22/17 18:59 - Respiratory Exam Additional comments: Lungs clear - Cardiovascular Exam Cardiovascular Exam: REGULAR RHYTHM - GI/Abdominal Exam GI & Abdominal Exam: Soft - Extremities Exam Additional comments: No edema Assessment and Plan - Assessment and Plan (Free Text) Assessment: Abdominal pain,ascitis possibly malignant sec to [employer] source Cultures of ascitic fluid are negative so far Hep B with liver cirrhosis Hypokalemia corrected RA HTN Plan: Continue current Mx BP is controlled
[2017-03-24] MEDS: cefTRIAXone 2 GM in Sodium Chloride 0.9% 100 ML IVPB SCH (14:10)
--- NOTE | 2017-03-24 15:29 | CP.PCM.CON ---
History of Present Illness - History of Present Illness History of Present Illness: Palliative consult Requested by Cierra CAMPO Reason; Code status. goals of care Patient is a 77 yo female admitted from her PCP office where she complained of abdominal pain. pain was described as " feeling tight", located at lower abdomen and rated 8/10. patient reports noticing enlarged abdomen in last February . patient had no had any previous symptoms suggesting the liver cirrhosis. Patient was scheduled for paracentesis after which she reported relief from the pain. Patient was ordered lasix amd Morphine IV. PMH: hep B, decompensated liver cirhosis Soc. hx: , lives at home, Jehovah witness Fam ; Hx: parents from natural causes, patient denied knowledge of known fm hx Review of Systems - Review of Systems All systems: reviewed and no additional remarkable complaints except - Constitutional Constitutional: absent: As Per HPI, Anorexia, Chills, Daytime Sleepiness, Excessive Sweating, Fatigue, Fever, Frequent Falls, Headache, Increased Appetite , Lethargy, Malaise, Night Sweats, Snoring, Sleep Apnea, Weight Gain, Weight Loss, Weakness, Other - EENT Eyes: absent: As Per HPI, Blind Spots, Blurred Vision, Change in Vision, Decreased Night Vision, Diplopia, Discharge, Dry Eye, Exophthalmos, Floaters, Irritation, Itchy Eyes, Loss of Peripheral Vision, Pain, Photophobia, Requires Corrective Lenses, Sees Flashes, Spots in Vision, Tunnel Vision, Other Visual Disturbances, Loss of Vision, Other Ears: absent: As Per HPI, Decreased Hearing, Ear Discharge, Ear Pain, Tinnitus, Abnormal Hearing, Disequilibrium, Dizziness, Other Nose/Mouth/Throat: absent: As Per HPI, Epistaxis, Nasal Congestion, Nasal Discharge, Nasal Obstruction, Nasal Trauma, Nose Pain, Post Nasal Drip, Sinus Pain, Sinus Pressure, Bleeding Gums, Change in Voice, Dental Pain, Dry Mouth, Dysphagia, Halitosis, Hoarsness, Lip Swelling, Mouth Lesions, Mouth Pain, Odynophagia, Sore Throat, Throat Swelling, Tongue Swelling, Facial Pain, Neck Pain, Neck Mass, Other - Breasts Breasts: absent: As Per HPI, Change in Shape, Mass, Pain, Nipple Discharge, Nipple Inversion, Skin Changes, Swelling, Other - Cardiovascular Cardiovascular: Pedal Edema - Respiratory Respiratory: absent: As Per HPI, Cough, Dyspnea, Hemoptysis, Dyspnea on Exertion , Wheezing, Snoring, Stridor, Pain on Inspiration, Chest Congestion, Excessive Mucous Production, Change in Mucous Color, Pain with Coughing, Other - Gastrointestinal Gastrointestinal: Abdominal Pain, Bloating - Genitourinary Genitourinary: absent: As Per HPI, Change in Urinary Stream, Difficulty Urinating, Dysuria, Flank Pain, Hematuria, Pyuria, Nocturia, Urinary Incontinence, Urinary Frequency, Urinary Hesitance, Urinary Urgency, Voiding Freq/Small Amts, Freq UTI, Hx Renal/Bladder Calculi, Hx /Renal Surgery, Bladder Distension, Other - Reproductive: Female Reproductive:Female: Post Menopausal - Menstruation Menstruation: Post Menopausal - Musculoskeletal Musculoskeletal: absent: As Per HPI, Abnormal Gait, Arthralgias, Atrophy, Back Pain, Deformity, Joint Swelling, Limited Range of Motion, Loss of Height, Muscle Cramps, Muscle Weakness, Myalgias, Neck Pain, Numbness, Radiating Pain into Limb, Stiffness, Tingling, Other - Integumentary Integumentary: Alopecia - Neurological Neurological: absent: As Per HPI, Abnormal Gait, Abnormal Hearing, Abnormal Movements, Abnormal Speech, Behavioral Changes, Burning Sensations, Confusion, Convulsions, Disequilibrium, Dizziness, Numbness, Focal Weakness, Frequent Falls , Headaches, Lack of Coordination, Loss of Vision, Memory Loss, Paresthesias, Radicular Pain, Restless Legs, Sensory Deficit, Syncope, Tingling, Tremor, Vertigo, Weakness, Other Visual Disturbances, Other - Psychiatric Psychiatric: absent: As Per HPI, Abnormal Sleep Pattern, Anhedonia, Anxiety, Auditory Hallucinations, Behavioral Changes, Change in Appetite, Change in Libido, Confusion, Depression, Difficulty Concentrating, Hallucinations, Homicidal Ideation, Hopelessness, Irritability, Memory Loss, Mood Swings, Panic Attacks, Paranoia, Suicidal Ideation, Visual Hallucinations, Tactile Hallucinations, Other - Endocrine Endocrine: absent: As Per HPI, Change in Body Appearance, Change in Libido, Cold Intolorance, Deepening of Voice, Excessive Sweating, Fatigue, Flushing, Heat Intolorance, Increase in Ring/Shoe/Hat Size, Palpitations, Polydipsia, Polyphagia, Polyuria, Other - Hematologic/Lymphatic Hematologic: absent: As Per HPI, Easy Bleeding, Easy Bruising, Lymphadenopathy, Other Past Patient History - Past Medical History & Family History Past Medical History?: Yes - Past Social History Smoking Status: Former Smoker - CARDIAC Hx Hypercholesterolemia: Yes Hx Hypertension: Yes - HEMATOLOGICAL/ONCOLOGICAL Hx Blood Disorders: Yes Hx Hepatitis B: Yes Other/Comment: ascites - MUSCULOSKELETAL/RHEUMATOLOGICAL Hx Rheumatoid Arthritis: Yes - GASTROINTESTINAL Hx Gastroesophageal Reflux: Yes - PSYCHIATRIC Hx Substance Use: No - SURGICAL HISTORY Other/Comment: Cancer Spot in 1960 Taken Out And Cleared. - ANESTHESIA Hx Anesthesia: Yes Hx Anesthesia Reactions: No Hx Malignant Hyperthermia: No Has any member of the family had a problem w/ anesthesia?: No Meds Allergies/Adverse Reactions: Allergies Allergy/AdvReac Type Severity Reaction Status Date / Time No Known Allergies Allergy Verified 03/22/17 17:15 - Medications Medications: Current Medications Aspirin (Aspirin Chewable) 81 mg PO DAILY [facility] Last Admin: 03/24/17 10:41 Dose: 81 mg Enoxaparin Sodium (Lovenox) 40 mg SC DAILY [facility] Last Admin: 03/24/17 10:42 Dose: 40 mg Furosemide (Lasix) 40 mg PO DAILY [facility] Last Admin: 03/24/17 10:42 Dose: 40 mg Ceftriaxone Sodium 2 gm/ (Sodium Chloride) 100 mls @ 100 mls/hr IVPB DAILY@ 1500 [facility] Last Admin: 03/24/17 14:10 Dose: 100 mls/hr Metoprolol Tartrate (Lopressor) 25 mg PO BID [facility] Last Admin: 03/24/17 09:20 Dose: 25 mg Morphine Sulfate (Morphine) 2 mg IVP Q6 PRN PRN Reason: Pain, moderate (4-7) Pneumococcal Polyvalent Vaccine (Pneumovax 23 Vaccine) 0.5 ml IM .ONCE ONE Stop: 03/25/17 11:01 Rosuvastatin Calcium (Crestor) 5 mg PO [facility] Last Admin: 03/23/17 22:36 Dose: 5 mg Spironolactone (Aldactone) 100 mg PO DAILY [facility] Last Admin: 03/24/17 10:42 Dose: 100 mg Physical Exam - Constitutional Appears: No Acute Distress - Head Exam Head Exam: ATRAUMATIC, NORMAL INSPECTION - Eye Exam Eye Exam: EOMI, Normal appearance, PERRL Pupil Exam: NORMAL ACCOMODATION, PERRL - ENT Exam ENT Exam: Mucous Membranes Moist, Normal Exam - Respiratory Exam Respiratory Exam: Clear to Auscultation Bilateral, NORMAL BREATHING PATTERN - Cardiovascular Exam Cardiovascular Exam: REGULAR RHYTHM - GI/Abdominal Exam GI & Abdominal Exam: Distended, Normal Bowel Sounds, Soft - Rectal Exam Rectal Exam: Deferred - Extremities Exam Extremities exam: Positive for: pedal edema - Back Exam Back exam: NORMAL INSPECTION - Neurological Exam Neurological exam: Abnormal Gait, Alert, Oriented x3 - Psychiatric Exam Psychiatric exam: Normal Affect, Normal Mood - Skin Skin Exam: Intact, Normal Color, Warm Results - Vital Signs Recent Vital Signs: Last Vital Signs Temp 98.3 F 03/24/17 08:54 Pulse 100 H 03/24/17 13:22 Resp 18 03/24/17 08:54 BP 126/69 03/24/17 10:42 Pulse Ox 96 03/24/17 09:19 - Labs Result Diagrams: 03/24/17 06:18 03/24/17 06:18 Assessment & Plan - Assessment and Plan (Free Text) Assessment: Palliative consult Advance directive on chart indicting DNR/DNI, PPS 60% I reviewed medical records, all diagnostic stuis, examined and interviewed patient in the bed. Patient is alert, oriented X 3 in no acute distress. patient is S/p paracenteses yesterday. Abdomen is soft, large and per patient much less distended than before. Patient still reports abdominal pain, 5-7 at rest. Pain is not relieved nor aggravated by the activity or food,. Patient reports relief only from the pain meds. There is pedal edema. Patient reports unsteady gait and ambulates using cane. All ROS obtained and are negative except the above. Code status discussed. I read back to patient the Advance Directive signed by her in . Patient confirmed it and has not changed her mind regarding goals for end of life care. Patient is a Jehovah witness and she named two persons from her adventist, calling them " her brothers" to be her surrogates. Patient was very clear stating that she would want medical treatments to be with held or withdrawn if her condition worsens to the point when meaningful recovery was not expected. It includes the assistance from MV. Patient does not wish to be given blood transfusions either due to her alevism believes. Impression * Patient is S/P paracentesis, in no acute distress * Abdominal pain relieved by the pain meds * pedal edema * Unsteady gait * Patient is Jehovah witness and does not want to be given blood products * Advance directive on chart Suggestion * Continue Lasix * Pain management * Refer to Advance Directive * Discharge planing I discussed with patient the recurrence of abdominal ascites and the need for frequent evacuation of those. Patient stated understanding.
--- NOTE | 2017-03-24 22:16 | CP.PCM.PN ---
Subjective - Date & Time of Evaluation Date of Evaluation: 03/24/17 - Subjective Subjective: ON ROCEPHIN FOR SBP, LESS PAIN, LESS FEVER, NO SOB Objective - Vital Signs/Intake and Output Vital Signs (last 24 hours): Temp Pulse Resp BP Pulse Ox 98 F 97 H 20 130/77 98 03/24/17 15:35 03/24/17 15:35 03/24/17 15:35 03/24/17 18:25 03/24/17 15:35 Intake and Output: 03/24/17 03/25/17 18:59 06:59 Intake Total 500 Balance 500 - Medications Medications: Current Medications Aspirin (Aspirin Chewable) 81 mg PO DAILY [facility] Last Admin: 03/24/17 10:41 Dose: 81 mg Enoxaparin Sodium (Lovenox) 40 mg SC DAILY [facility] Last Admin: 03/24/17 10:42 Dose: 40 mg Furosemide (Lasix) 40 mg PO DAILY [facility] Last Admin: 03/24/17 10:42 Dose: 40 mg Ceftriaxone Sodium 2 gm/ (Sodium Chloride) 100 mls @ 100 mls/hr IVPB DAILY@ 1500 [facility] Last Admin: 03/24/17 14:10 Dose: 100 mls/hr Metoprolol Tartrate (Lopressor) 25 mg PO BID [facility] Last Admin: 03/24/17 18:25 Dose: 25 mg Morphine Sulfate (Morphine) 2 mg IVP Q6 PRN PRN Reason: Pain, moderate (4-7) Pneumococcal Polyvalent Vaccine (Pneumovax 23 Vaccine) 0.5 ml IM .ONCE ONE Stop: 03/25/17 11:01 Rosuvastatin Calcium (Crestor) 5 mg PO [facility] Last Admin: 03/24/17 22:02 Dose: 5 mg Spironolactone (Aldactone) 100 mg PO DAILY [facility] Last Admin: 03/24/17 10:42 Dose: 100 mg - Labs Labs: PT 18.3 SECONDS (9.7-12.2) H 03/22/17 18:59 INR 1.6 03/22/17 18:59 APTT 27 SECONDS (21-34) 03/22/17 18:59 - Constitutional Appears: Non-toxic, No Acute Distress - Head Exam Head Exam: ATRAUMATIC, NORMAL INSPECTION, NORMOCEPHALIC - Eye Exam Eye Exam: EOMI, Normal appearance, PERRL Pupil Exam: NORMAL ACCOMODATION - ENT Exam ENT Exam: Mucous Membranes Moist, Normal Exam, Normal Oropharynx, TM's Normal Bilaterally - Neck Exam Neck Exam: Normal Inspection - Respiratory Exam Respiratory Exam: NORMAL BREATHING PATTERN - Cardiovascular Exam Cardiovascular Exam: REGULAR RHYTHM, +S1, +S2 - GI/Abdominal Exam GI & Abdominal Exam: Distended (MASSIVE ASCITIES,), Firm - Rectal Exam Rectal Exam: NORMAL INSPECTION - Exam Exam: NORMAL INSPECTION - Extremities Exam Extremities Exam: Full ROM, Normal Capillary Refill, Normal Inspection, Pedal Edema - Neurological Exam Neurological Exam: Awake, CN II-XII Intact, Normal Gait, Oriented x3 - Psychiatric Exam Psychiatric exam: Normal Affect, Normal Mood - Skin Skin Exam: Dry, Intact Assessment and Plan (1) Abdominal pain Assessment & Plan: SBP, ON ROCEPHIN, Status: Acute (2) Ascites Status: Chronic (3) Hypokalemia Status: Acute
[2017-03-25 08:28] VITALS: TEMP 98.3
[2017-03-25] MEDS: Enoxaparin 40 mg Syringe SC SCH (09:45)
[2017-03-25] MEDS ORDERED: Albumin Human 25% (12.5 gm/50 ml) IV ONE (10:00)
[2017-03-25] MEDS ORDERED: Pneumococcal 23-Valent Vaccine IM ONE (11:00)
--- NOTE | 2017-03-25 11:39 | US ---
Ultrasound guided paracentesis. Clinical History: Ascites with abdominal pain and distension. Technique: The relative risks and indications for the procedure were explained to the patient and informed written consent obtained. Sonography of the abdomen was performed in a supine position. This revealed a moderate amount of non-loculated ascites, greatest in the right lower quadrant. A puncture site was selected and the area was prepped and draped in the usual sterile fashion. 1% lidocaine was used to anesthetize the skin and soft tissues. A 5 Polish paracentesis catheter was trocared into the right lower quadrant under real time ultrasound guidance. A permanent image was stored. 3500 cc of fito fluid aspirated. Impression: Ultrasound-guided paracentesis in the right lower quadrant. 3500cc of fito colored fluid was aspirated.
--- NOTE | 2017-03-25 14:11 | CP.PCM.PN ---
Subjective - Date & Time of Evaluation Date of Evaluation: 03/25/17 Time of Evaluation: 11:00 - Subjective Subjective: Feels better. Less abd pain Eating better Objective - Vital Signs/Intake and Output Vital Signs (last 24 hours): Temp Pulse Resp BP Pulse Ox 98.3 F 69 18 111/68 97 03/25/17 07:20 03/25/17 11:57 03/25/17 07:20 03/25/17 09:45 03/25/17 07:20 Intake and Output: 03/25/17 03/25/17 06:59 18:59 Intake Total 420 Balance 420 - Medications Medications: Current Medications Albumin Human (Albumin Human 25% (12.5 Gm/50 Ml)) 62.5 gm IV ONCE ONE Stop: 03/27/17 10:01 Aspirin (Aspirin Chewable) 81 mg PO DAILY [facility] Last Admin: 03/25/17 09:43 Dose: 81 mg Enoxaparin Sodium (Lovenox) 40 mg SC DAILY [facility] Last Admin: 03/25/17 09:45 Dose: 40 mg Furosemide (Lasix) 40 mg PO DAILY [facility] Last Admin: 03/25/17 09:45 Dose: 40 mg Ceftriaxone Sodium 2 gm/ (Sodium Chloride) 100 mls @ 100 mls/hr IVPB DAILY@ 1500 [facility] Last Admin: 03/24/17 14:10 Dose: 100 mls/hr Metoprolol Tartrate (Lopressor) 25 mg PO BID [facility] Last Admin: 03/25/17 09:45 Dose: 25 mg Morphine Sulfate (Morphine) 2 mg IVP Q6 PRN PRN Reason: Pain, moderate (4-7) Rosuvastatin Calcium (Crestor) 5 mg PO HS [facility] Last Admin: 03/24/17 22:02 Dose: 5 mg Spironolactone (Aldactone) 100 mg PO DAILY [facility] Last Admin: 03/25/17 09:45 Dose: 100 mg - Labs Labs: PT 18.3 SECONDS (9.7-12.2) H 03/22/17 18:59 INR 1.6 03/22/17 18:59 APTT 27 SECONDS (21-34) 03/22/17 18:59 - Respiratory Exam Additional comments: Lungs clear - Cardiovascular Exam Cardiovascular Exam: REGULAR RHYTHM - Extremities Exam Additional comments: No edema Assessment and Plan - Assessment and Plan (Free Text) Assessment: Abdominal pain ascitis r/o FINISHED [employer] malgnancy S/P paracenthesis Peritoneal fluid cultures remain negative Liver cirrhosis, Hep B Plan: On Abx Labs stable Continue current Meds
[2017-03-25] MEDS: cefTRIAXone 2 GM in Sodium Chloride 0.9% 100 ML IVPB SCH (14:17)
--- NOTE | 2017-03-25 15:02 | CP.PCM.PN ---
<Hilton Ramos - Last Filed: 03/25/17 15:05> Subjective - Date & Time of Evaluation Date of Evaluation: 03/25/17 Time of Evaluation: 08:15 - Subjective Subjective: PGY 4 GI Follow-up Pt seen and examined bedside Denies any abd pain +BM tolerating diet Denies any fever, chills or diaohoresis ROS: 10 point ROS conducted, other than what was stated above otherwise neg Objective - Vital Signs/Intake and Output Vital Signs (last 24 hours): Temp Pulse Resp BP Pulse Ox 98.3 F 69 18 111/68 97 03/25/17 07:20 03/25/17 11:57 03/25/17 07:20 03/25/17 09:45 03/25/17 07:20 Intake and Output: 03/25/17 03/25/17 06:59 18:59 Intake Total 420 500 Balance 420 500 - Medications Medications: Current Medications Albumin Human (Albumin Human 25% (12.5 Gm/50 Ml)) 62.5 gm IV ONCE ONE Stop: 03/27/17 10:01 Aspirin (Aspirin Chewable) 81 mg PO DAILY [facility] Last Admin: 03/25/17 09:43 Dose: 81 mg Enoxaparin Sodium (Lovenox) 40 mg SC DAILY [facility] Last Admin: 03/25/17 09:45 Dose: 40 mg Furosemide (Lasix) 40 mg PO DAILY [facility] Last Admin: 03/25/17 09:45 Dose: 40 mg Ceftriaxone Sodium 2 gm/ (Sodium Chloride) 100 mls @ 100 mls/hr IVPB DAILY@ 1500 [facility] Last Admin: 03/25/17 14:17 Dose: 100 mls/hr Metoprolol Tartrate (Lopressor) 25 mg PO BID [facility] Last Admin: 03/25/17 09:45 Dose: 25 mg Morphine Sulfate (Morphine) 2 mg IVP Q6 PRN PRN Reason: Pain, moderate (4-7) Rosuvastatin Calcium (Crestor) 5 mg PO HS [facility] Last Admin: 03/24/17 22:02 Dose: 5 mg Spironolactone (Aldactone) 100 mg PO DAILY [facility] Last Admin: 03/25/17 09:45 Dose: 100 mg - Labs Labs: PT 18.3 SECONDS (9.7-12.2) H 03/22/17 18:59 INR 1.6 03/22/17 18:59 APTT 27 SECONDS (21-34) 03/22/17 18:59 - Constitutional Appears: Well, No Acute Distress - Head Exam Head Exam: ATRAUMATIC, NORMOCEPHALIC - Eye Exam Eye Exam: Normal appearance - ENT Exam ENT Exam: Mucous Membranes Moist, Normal Exam - Respiratory Exam Respiratory Exam: Clear to Ausculation Bilateral, NORMAL BREATHING PATTERN. absent: Rales, Rhonchi, Wheezes, Respiratory Distress - Cardiovascular Exam Cardiovascular Exam: REGULAR RHYTHM, +S1, +S2 - GI/Abdominal Exam GI & Abdominal Exam: Soft, Normal Bowel Sounds - Extremities Exam Extremities Exam: Normal Inspection - Neurological Exam Neurological Exam: Alert, Awake, Oriented x3 - Psychiatric Exam Psychiatric exam: Normal Affect, Normal Mood - Skin Skin Exam: Dry, Intact, Normal Color, Warm Assessment and Plan - Assessment and Plan (Free Text) Assessment: Elif Ordoñez is 77F w/ hx of hep b, decompensated liver cirrohsis who presented to the Ed with complaints of abd pain. Her abd pain is likely 2/2 worsening ascites. Pt's ascities fluid analysis reveals SBP SBP Ascities 2/2 Decompensated liver cirrhosis Decompensated Liver Cirrhosis 2/2 Hep B Hep B Constipation Plan -absolute PMN is ~ 375 , with RBC correction = 365 (>250) -switched to ceftriaxone due to shortage, continue until discharge - upon discharge recommend levaquin 750mg q daily for 5 days the bactrim DS BID indef for prophal or until seen by her primary GI -will wait for final culture of fluid -pt unable to take albumin since she is a JW -continue lasix 40mg Po daily and aldactone 100mg, titrate as tolerated -pain management as per primary team -okay to d/x from GI standpoint d/w Dr. Segal <Willis Segal - Last Filed: 03/25/17 15:55> Objective - Vital Signs/Intake and Output Vital Signs (last 24 hours): Temp Pulse Resp BP Pulse Ox 98.3 F 94 H 20 111/68 96 03/25/17 15:29 03/25/17 15:29 03/25/17 15:29 03/25/17 09:45 03/25/17 15:29 Intake and Output: 03/25/17 03/25/17 06:59 18:59 Intake Total 420 500 Balance 420 500 - Medications Medications: Current Medications Aspirin (Aspirin Chewable) 81 mg PO DAILY [facility] Last Admin: 03/25/17 09:43 Dose: 81 mg Enoxaparin Sodium (Lovenox) 40 mg SC DAILY [facility] Last Admin: 03/25/17 09:45 Dose: 40 mg Furosemide (Lasix) 40 mg PO DAILY [facility] Last Admin: 03/25/17 09:45 Dose: 40 mg Ceftriaxone Sodium 2 gm/ (Sodium Chloride) 100 mls @ 100 mls/hr IVPB DAILY@ 1500 [facility] Last Admin: 03/25/17 14:17 Dose: 100 mls/hr Metoprolol Tartrate (Lopressor) 25 mg PO BID [facility] Last Admin: 03/25/17 09:45 Dose: 25 mg Morphine Sulfate (Morphine) 2 mg IVP Q6 PRN PRN Reason: Pain, moderate (4-7) Rosuvastatin Calcium (Crestor) 5 mg PO HS [facility] Last Admin: 03/24/17 22:02 Dose: 5 mg Spironolactone (Aldactone) 100 mg PO DAILY [facility] Last Admin: 03/25/17 09:45 Dose: 100 mg - Labs Labs: PT 18.3 SECONDS (9.7-12.2) H 03/22/17 18:59 INR 1.6 03/22/17 18:59 APTT 27 SECONDS (21-34) 03/22/17 18:59 Attending/Attestation - Attestation I have personally seen and examined this patient.: Yes I have fully participated in the care of the patient.: Yes I have reviewed all pertinent clinical information, including history, physical exam and plan: Yes Notes (Text): 03/25/17 15:53 77 year old female with HBV Cirrhosis a/w ascites found to have SBP. 1. Spontaneous bacterial peritonitis 2. Hepatitis B Cirrhosis 3. Ascites Plan: -on antibiotics -recommended IV albumin day 1 and 3, but patient refuses as she is jehovas witness -will transition to PO levaquin x 5 days -then will need bactrim DS indefinitely for sbp proph -continue diuretics/low sodium diet -ok to discharge
[2017-03-25 15:33] VITALS: PULSE 94; RESP 20; O2SAT 96
--- NOTE | 2017-03-25 16:16 | CP.PCM.PN ---
Subjective - Date & Time of Evaluation Date of Evaluation: 03/25/17 Time of Evaluation: 11:00 - Subjective Subjective: Pt seen and examined today, states feels better, abdominal pain improved, denies any N/V/D a febrile s/p paracnetesis Objective - Vital Signs/Intake and Output Vital Signs (last 24 hours): Temp Pulse Resp BP Pulse Ox 98.3 F 94 H 20 111/68 96 03/25/17 15:29 03/25/17 15:29 03/25/17 15:29 03/25/17 09:45 03/25/17 15:29 Intake and Output: 03/25/17 03/25/17 06:59 18:59 Intake Total 420 500 Balance 420 500 - Medications Medications: Current Medications Aspirin (Aspirin Chewable) 81 mg PO DAILY [facility] Last Admin: 03/25/17 09:43 Dose: 81 mg Enoxaparin Sodium (Lovenox) 40 mg SC DAILY [facility] Last Admin: 03/25/17 09:45 Dose: 40 mg Furosemide (Lasix) 40 mg PO DAILY [facility] Last Admin: 03/25/17 09:45 Dose: 40 mg Ceftriaxone Sodium 2 gm/ (Sodium Chloride) 100 mls @ 100 mls/hr IVPB DAILY@ 1500 [facility] Last Admin: 03/25/17 14:17 Dose: 100 mls/hr Metoprolol Tartrate (Lopressor) 25 mg PO BID [facility] Last Admin: 03/25/17 09:45 Dose: 25 mg Morphine Sulfate (Morphine) 2 mg IVP Q6 PRN PRN Reason: Pain, moderate (4-7) Rosuvastatin Calcium (Crestor) 5 mg PO HS [facility] Last Admin: 03/24/17 22:02 Dose: 5 mg Spironolactone (Aldactone) 100 mg PO DAILY [facility] Last Admin: 03/25/17 09:45 Dose: 100 mg - Labs Labs: PT 18.3 SECONDS (9.7-12.2) H 03/22/17 18:59 INR 1.6 03/22/17 18:59 APTT 27 SECONDS (21-34) 03/22/17 18:59 Assessment and Plan - Assessment and Plan (Free Text) Assessment: A?P
[2017-03-25 17:05] VITALS: BP 118/79
--- NOTE | 2017-03-25 22:43 | CP.PCM.DIS ---
Provider - Provider Date of Admission: 03/24/17 11:30 Attending physician: Janes Garcia MD Diagnosis - Discharge Diagnosis (1) Abdominal pain Status: Acute (2) Ascites Status: Chronic (3) Hypokalemia Status: Acute Hospital Course - Lab Results Lab Results: Most Recent Lab Values WBC 3.9 K/uL (4.8-10.8) L 03/24/17 06:18 RBC 3.78 Mil/uL (3.80-5.20) L 03/24/17 06:18 Hgb 8.9 g/dL (11.0-16.0) L 03/24/17 06:18 Hct 27.8 % (34.0-47.0) L 03/24/17 06:18 MCV 73.6 fL (81.0-99.0) L 03/24/17 06:18 MCH 23.6 pg (27.0-31.0) L 03/24/17 06:18 MCHC 32.0 g/dL (33.0-37.0) L 03/24/17 06:18 RDW 18.9 % (11.5-14.5) H 03/24/17 06:18 Plt Count 441 K/uL (130-400) H 03/24/17 06:18 MPV 8.2 fL (7.2-11.7) 03/24/17 06:18 Neut % (Auto) 67.8 % (50.0-75.0) 03/24/17 06:18 Lymph % (Auto) 18.5 % (20.0-40.0) L 03/24/17 06:18 [place] % (Auto) 10.2 % (0.0-10.0) H 03/24/17 06:18 Eos % (Auto) 2.6 % (0.0-4.0) 03/24/17 06:18 Baso % (Auto) 0.9 % (0.0-2.0) 03/24/17 06:18 Neut # 2.6 K/uL (1.8-7.0) 03/24/17 06:18 Lymph # 0.7 K/uL (1.0-4.3) L 03/24/17 06:18 [place] # 0.4 K/uL (0.0-0.8) 03/24/17 06:18 Eos # 0.1 K/uL (0.0-0.7) 03/24/17 06:18 Baso # 0.0 K/uL (0.0-0.2) 03/24/17 06:18 PT 18.3 SECONDS (9.7-12.2) H 03/22/17 18:59 INR 1.6 03/22/17 18:59 APTT 27 SECONDS (21-34) 03/22/17 18:59 Sodium 139 mmol/L (132-148) 03/24/17 06:18 Potassium 3.9 mmol/L (3.6-5.2) 03/24/17 06:18 Chloride 100 mmol/L (98-107) 03/24/17 06:18 Carbon Dioxide 31 mmol/L (22-30) H 03/24/17 06:18 Anion Gap 12 (10-20) 03/24/17 06:18 BUN 3 mg/dL (7-17) L 03/24/17 06:18 Creatinine 0.5 MG/DL (0.7-1.2) L 03/24/17 06:18 Est GFR ( Amer) > 60 03/24/17 06:18 Est GFR (Non-Af Amer) > 60 03/24/17 06:18 Random Glucose 74 mg/dL (65-105) 03/24/17 06:18 Calcium 7.7 mg/dl (8.6-10.4) L 03/24/17 06:18 Iron 17 ug/dL (37-170) L 03/23/17 06:33 TIBC 178 ug/dL (250-450) L 03/23/17 06:33 % Saturation 10 (20-55) L 03/23/17 06:33 Total Bilirubin 0.4 mg/dL (0.2-1.3) 03/23/17 06:33 AST 30 U/L (14-36) 03/23/17 06:33 ALT 21 U/L (9-52) 03/23/17 06:33 Alkaline Phosphatase 79 U/L (38-126) 03/23/17 06:33 Troponin I 0.0150 ng/mL (0.00-0.120) 03/22/17 18:59 Total Protein 6.2 g/dL (6.3-8.3) L 03/23/17 06:33 Albumin 2.5 g/dL (3.5-5.0) L 03/23/17 06:33 Globulin 3.7 gm/dL (2.2-3.9) 03/23/17 06:33 Albumin/Globulin Ratio 0.7 (1.0-2.1) L 03/23/17 06:33 Lipase 65 U/L (23-300) 03/22/17 18:59 Vitamin B12 819 pg/mL (239-931) 03/23/17 06:33 Folate 10.8 ng/mL 03/23/17 06:33 TSH 3rd Generation 2.65 mIU/L (0.46-4.68) 03/23/17 06:33 Urine Color Yellow (YELLOW) 03/22/17 18:59 Urine Clarity Hazy (Clear) 03/22/17 18:59 Urine pH 5.0 (5.0-8.0) 03/22/17 18:59 Ur Specific [place] 1.026 (1.003-1.030) 03/22/17 18:59 Urine Protein 1+ mg/dL (NEGATIVE) H 03/22/17 18:59 Urine Glucose (UA) Normal mg/dL (Normal) 03/22/17 18:59 Urine Ketones Trace mg/dL (NEGATIVE) 03/22/17 18:59 Urine Blood Negative (NEGATIVE) 03/22/17 18:59 Urine Nitrate Negative (NEGATIVE) 03/22/17 18:59 Urine Bilirubin Negative (NEGATIVE) 03/22/17 18:59 Urine Urobilinogen 4.0 mg/dL (0.2-1.0) H 03/22/17 18:59 Ur Leukocyte Esterase Neg Jerri/uL (Negative) 03/22/17 18:59 Urine WBC (Auto) 5 /hpf (0-5) 03/22/17 18:59 Urine RBC (Auto) 3 /hpf (0-3) 03/22/17 18:59 Ur Squamous Epith Cells 15 /hpf (0-5) H 03/22/17 18:59 Ur Transition Epith Cell < 1 /hpf (0-3) 03/22/17 18:59 Urine Bacteria Few (<OCC) H 03/22/17 18:59 Hyaline Casts 3-5 /lpf (0-2) H 03/22/17 18:59 Fluid Source Peritoneal 03/23/17 13:23 Fluid Appearance Sl cloudy (CLEAR) 03/23/17 13:23 Fluid WBC 441.0 /mm3 (0.0-300.0) H 03/23/17 13:23 Fluid RBC 2524.0 /mm3 (0.0-0.0) H 03/23/17 13:23 Fluid Tot Cell Count 100 (0-0) H 03/23/17 13:23 Fluid Neutrophils 85.0 % (0-0) H 03/23/17 13:23 Fluid Lymphocytes 12.0 % (0-0) H 03/23/17 13:23 Fld Monocyte/Macrophag 3 % (0-0) H 03/23/17 13:23 Fluid Diff Path Review 03/23/17 13:23 Fluid Comment 03/23/17 13:23 Hepatitis A IgM Ab Negative (NEGATIVE) 03/23/17 07:55 Hep Bs Antigen Positive (NEGATIVE) H 03/23/17 07:55 Hep Bs Ag Neutralizatn Confirmed positive H 03/23/17 07:55 Hep Bs Antibody Negative (NEGATIVE) 03/23/17 07:55 Hep B Core IgM Ab Negative (NEGATIVE) 03/23/17 07:55 Hepatitis C Antibody Negative (NEGATIVE) 03/23/17 07:55 - Hospital Course Hospital Course: ADMITTED WITH ASCITIES AND SHE HAD PARACENTESIS, AND SHE WAS GIVEN ANTIBIOTICS AND THEN DISCHARGED Discharge Exam - Head Exam Head Exam: ATRAUMATIC, NORMOCEPHALIC - Eye Exam Eye Exam: EOMI, Normal appearance, PERRL, Scleral icterus Pupil Exam: NORMAL ACCOMODATION - ENT Exam ENT Exam: Mucous Membranes Moist, Normal Exam, Normal Oropharynx, TM's Normal Bilaterally - Neck Exam Neck exam: Normal Inspection - Respiratory Exam Respiratory Exam: Decreased Breath Sounds, NORMAL BREATHING PATTERN - Cardiovascular Exam Cardiovascular Exam: REGULAR RHYTHM, +S1, +S2 - GI/Abdominal Exam GI & Abdominal Exam: Distended, Normal Bowel Sounds - Rectal Exam Rectal Exam: NORMAL INSPECTION - Exam External exam: NORMAL EXTERNAL EXAM - Neurological Exam Neurological exam: Alert, CN II-XII Intact, Normal Gait, Oriented x3, Reflexes Normal - Psychiatric Exam Psychiatric exam: Flat Affect - Skin Skin Exam: Intact Discharge Plan - Discharge Medications Prescriptions: Spironolactone [Aldactone] 100 mg PO DAILY #30 tab Sulfamethoxazole/Trimethoprim [Bactrim DS 800 mg-160 mg] 1 tab PO BID #60 tab Furosemide [Lasix] 40 mg PO DAILY #30 tab levoFLOXacin [Levaquin] 750 mg PO DAILY #5 tab - Follow Up Plan Condition: GOOD Disposition: HOME/ ROUTINE Instructions: Sulfamethoxazole/Trimethoprim (By mouth), Spironolactone (By mouth), Furosemide (By mouth), Levofloxacin (By mouth), Heart Healthy Diet (DC) , Hypokalemia (DC), Acute Abdominal Pain (DC), Abdominal Paracentesis (DC), Ascites (DC) Additional Instructions: Please f/u with Dr. Coy office in 1 week Please f/u with Dr. marroquin office in 1 week Please f/u with [facility] as scheduled Continue medication as per Med. Rec. continue antibiotics as prescribed until seen by GI and f/u HIS RECOMMENDATIONS REGARDING ANTIBIOTICS Referrals: Chance Richardson MD [Staff Provider] - Janes Garcia MD [Staff Provider] - Arnol Marroquin MD [Staff Provider] -
[2017-03-27] MEDS ORDERED: Albumin Human 25% (12.5 gm/50 ml) IV ONE (10:00)
== END 2017-03-25 18:32 | disposition home or self-care (01) | DRG 372 ==
LOC: C.ER 16:56 → C.9E 20:17 → C.6T 21:09 → OBSVTOIN 03-24 11:30
PROVIDERS: ADMIT Internal Medicine; ATTEND Internal Medicine
PROC: 0W9G3ZZ Drainage of Peritoneal Cavity, Percutaneous Approach (ICD-10-PCS; principal; 2017-03-24)
DX: K65.2 Spontaneous bacterial peritonitis (principal); R18.8 Other ascites; K74.60 Unspecified cirrhosis of liver; B19.10 Unspecified viral hepatitis B without hepatic coma; K59.00 Constipation, unspecified; M06.9 Rheumatoid arthritis, unspecified; I10 Essential (primary) hypertension; E87.6 Hypokalemia; E78.5 Hyperlipidemia, unspecified; K21.9 Gastro-esophageal reflux disease without esophagitis; K74.69 Other cirrhosis of liver; Z66 Do not resuscitate; Z87.891 Personal history of nicotine dependence